=== PATIENT | female | born 1935 | race Two or more races ===

== ENCOUNTER 2023-03-04 17:37 | Inpatient (IN) | payer MEDICARE, OTHER ==
[~2023-03-04] VITALS: Ht 154.9 cm; Wt 52.2 kg
[2023-03-04] MEDS ORDERED: ONDANSETRON HCL 4 MG/2 ML VIAL IV ONE (18:15)
[2023-03-04] MEDS ORDERED: MORPHINE SULFATE 4 MG/ML SYR/VIAL IV ONE (18:15)
[2023-03-04 18:53] LABS: Basophils # (auto) 0.1 10 ^3/uL (0-0.2); Eosinophils # (auto) 0.1 10 ^3/uL (0-0.8); Eosinophils % (auto) 1.3 % (0.0-7.0); Hemoglobin 14.8 g/dL (12.2-16.2); Lymphocytes # (auto) 1.4 10 ^3/uL (0.4-5.4); Lymphocytes % (auto) 26.9 % (10.0-50.0); Mean Corpuscular Hemoglobin 29.1 pg (28.0-32.0); Mean Corpuscular Hgb Conc. 33.7 g/dL (32.0-36.0); Mean Corpuscular Volume 86.5 fL (80.0-100.0); Monocytes # (auto) 0.6 10 ^3/uL (0-1.3); Monocytes % (auto) 11.5 % (0.0-12.0); Neutrophils # (auto) 3.2 10 ^3/uL (1.6-8.6); Neutrophils % (auto) 59.3 % (37.0-80.0); Nucleated Red Blood Cells % 0.1 %; Red Blood Cells 5.09 10^6/uL (4.0-5.20); Red Cell Distribution Width 14.5 % (11.8-14.3); White Blood Cell 5.3 10^3/uL (4.4-10.8)
[2023-03-04 19:09] LABS: INR 0.98 (0.9-1.15); Partial Thromboplastin Time 29.1 sec (24.6-33.4)
[2023-03-04] MEDS ORDERED: METOPROLOL TARTRATE 1MG/1ML-5ML VIAL IV ONE (19:15)
[2023-03-04] MEDS ORDERED: NITROGLYCERIN 0.4 MG SL TAB SL ONE (19:15)
[2023-03-04] MEDS ORDERED: HEPARIN SODIUM (PORCINE) 5000 UNITS/ML 1ML VIAL IV ONE (19:15)
[2023-03-04] MEDS ORDERED: HEPARIN DRIP/D5W 100UNITS/ML 250 ML IV SCH (19:15)
[2023-03-04 19:28] LABS: Albumin 4.1 g/dL (3.4-5.0); BUN/Creatinine Ratio 23.9 (10.0-20.0); Calcium 9.9 mg/dL (8.5-10.1); Magnesium 2.4 mg/dL (1.6-2.6); Potassium 3.8 mmol/L (3.5-5.1)
[2023-03-04 19:31] LABS: Bilirubin, Total 0.7 mg/dL (0.2-1.0); Total Protein 7.3 g/dL (6.4-8.2)
[2023-03-04] MEDS ORDERED: ACETAMINOPHEN 325 MG TAB PO PRN (20:45)
[2023-03-04] MEDS ORDERED: NITROGLYCERIN 0.4 MG SL TAB SL PRN (20:45)
[2023-03-04] MEDS ORDERED: MORPHINE SULFATE INJ 2 MG/ml SYRG IV PRN (20:45)
[2023-03-04] MEDS ORDERED: SODIUM CHLORIDE 0.9% 1,000 ML IV SCH (20:45)
[2023-03-04] MEDS ORDERED: ENAL2.5T7 PO (20:55)
[2023-03-04] MEDS ORDERED: [UNRECOGNIZED DRUG - CODE] PO (20:55)
[2023-03-04] MEDS ORDERED: METO25TA93 PO (20:55)
[2023-03-04] MEDS ORDERED: ATOR20TA50 PO (20:55)
[2023-03-04] MEDS ORDERED: METO25TA93 (20:55)
[2023-03-04] MEDS ORDERED: hydrALAZINE HCL 20 MG/ML VL IV PRN (21:00)
[2023-03-04 21:59] LABS: Cholesterol 138 mg/dL (< 200); Triglycerides 30 mg/dL (< 150)
[2023-03-04 22:02] LABS: HDL Cholesterol 82 mg/dL (40-59); LDL Cholesterol 50 mg/dL (< 100)
[2023-03-05 05:39] LABS: Basophils # (auto) 0 10 ^3/uL (0-0.2); Eosinophils # (auto) 0.1 10 ^3/uL (0-0.8); Hematocrit 36.5 % (36.0-46.0); Hemoglobin 12.5 g/dL (12.2-16.2); Lymphocytes % (auto) 30.2 % (10.0-50.0); Mean Corpuscular Hemoglobin 29.3 pg (28.0-32.0); Mean Corpuscular Hgb Conc. 34.3 g/dL (32.0-36.0); Mean Corpuscular Volume 85.4 fL (80.0-100.0); Monocytes # (auto) 0.5 10 ^3/uL (0-1.3); Monocytes % (auto) 14.1 % (0.0-12.0); Neutrophils # (auto) 1.8 10 ^3/uL (1.6-8.6); Neutrophils % (auto) 52.7 % (37.0-80.0); Nucleated Red Blood Cells % 0.1 %; Red Blood Cells 4.27 10^6/uL (4.0-5.20); Red Cell Distribution Width 14.9 % (11.8-14.3); White Blood Cell 3.3 10^3/uL (4.4-10.8)
[2023-03-05 05:56] LABS: Albumin 2.8 g/dL (3.4-5.0); Calcium 8.3 mg/dL (8.5-10.1); Potassium 3.7 mmol/L (3.5-5.1)
[2023-03-05 05:59] LABS: BUN/Creatinine Ratio 19.7 (10.0-20.0); Bilirubin, Total 0.7 mg/dL (0.2-1.0); Total Protein 5.3 g/dL (6.4-8.2)
[2023-03-05] MEDS ORDERED: NITROGLYCERIN 0.2MG/HR TOPICAL PATCH TD SCH (10:00)
[2023-03-05] MEDS: ENOXAPARIN SOD 40 MG/0.4 ML SYRINGE SC SCH (10:05)
[2023-03-05] MEDS: ATORVASTATIN 20 MG TAB PO SCH (10:06)
[2023-03-05] MEDS: ASPirin 81 mg TAB PO SCH (10:06)
[2023-03-05] MEDS: ENALAPRIL MALEATE 2.5 MG TAB PO SCH (10:07)
[2023-03-05] MEDS: METOPROLOL SUCCINATE XL 50 MG TAB PO SCH (10:07)
[2023-03-05] MEDS: REGADENOSON 0.4 MG/5 ML SYRG IV ONE ×4 (14:08→16:55)
[2023-03-05 16:30] VITALS: BP 143/55
[2023-03-05] MEDS ORDERED: ONDANSETRON HCL 4 MG/2 ML VIAL IV PRN (17:15)
[2023-03-05] MEDS ORDERED: ASPI81CH49 PO (17:48)
[2023-03-05 20:10] VITALS: BP 127/70
[2023-03-05 22:00] VITALS: BP 127/70
[2023-03-05 22:50] LABS: Urine Bacteria NONE SEEN /hpf (None Seen); Urine Blood Negative /uL (Negative); Urine Specific Gravity 1.013 (1.001-1.035); Urine WBC <1 /hpf (0 - 5)
[2023-03-06 04:58] VITALS: BP 129/60
[2023-03-06 06:14] LABS: BUN/Creatinine Ratio 20.2 (10.0-20.0); Calcium 8.8 mg/dL (8.5-10.1); Potassium 3.9 mmol/L (3.5-5.1)
[2023-03-06 08:00] VITALS: BP 152/61
[2023-03-06 08:30] VITALS: BP 152/61
[2023-03-06] MEDS: ASPirin 81 mg TAB PO SCH (09:12)
[2023-03-06] MEDS: ATORVASTATIN 20 MG TAB PO SCH (09:13)
[2023-03-06] MEDS: ENALAPRIL MALEATE 2.5 MG TAB PO SCH (09:14)
[2023-03-06] MEDS: METOPROLOL SUCCINATE XL 50 MG TAB PO SCH (09:14)
[2023-03-06] MEDS: ENOXAPARIN SOD 40 MG/0.4 ML SYRINGE SC SCH (09:15)
[2023-03-06 12:30] VITALS: BP 132/62
[2023-03-06 13:54] VITALS: BP 152/61
[2023-03-06 16:36] VITALS: BP 149/60
== END 2023-03-06 18:10 | disposition home or self-care (01) | DRG 281 ==
LOC: EDBD 17:37 → ER 17:37 → TELE 20:42 → TELE-WESTW 03-05 18:08
PROVIDERS: ADMIT Nurse Practitioner Family; ATTEND Internal Medicine
DX: I16.0 Hypertensive urgency (principal); I21.A1 Myocardial infarction type 2; I50.32 Chronic diastolic (congestive) heart failure; I25.10 Atherosclerotic heart disease of native coronary artery without angina pectoris; E78.5 Hyperlipidemia, unspecified; M79.7 Fibromyalgia; E11.9 Type 2 diabetes mellitus without complications; I11.0 Hypertensive heart disease with heart failure; D64.9 Anemia, unspecified; Z79.82 Long term (current) use of aspirin; Z91.041 Radiographic dye allergy status; Z88.5 Allergy status to narcotic agent; Z86.73 Personal history of transient ischemic attack (TIA), and cerebral infarction without residual deficits; Z90.710 Acquired absence of both cervix and uterus; Z87.442 Personal history of urinary calculi; I25.2 Old myocardial infarction; Z90.49 Acquired absence of other specified parts of digestive tract
CPT/HCPCS: 36415; 71045; 78452; 80048; 80053; 80061; 81001; 83735; 83880; 84443; 84484; 85025; 85379; 85610; 85730; 93005; 93017; 93306; 96361; 96372; 96374; 97163; G0378; J2405

== ENCOUNTER 2024-09-03 15:47 | Inpatient (IN) | payer OTHER, MEDICARE ==
[~2024-09-03] VITALS: Ht 154.9 cm; Wt 54.4 kg
[~2024-09-03 15:47] MED LIST: ASPI81CH49 PO; ATOR20TA50 PO; ENAL1TAB42 PO; METO25TA93; METO25TA93 PO; [UNRECOGNIZED DRUG - CODE] PO
--- NOTE | 2024-09-03 15:55 | ED.PDOC ---
History of Present Illness HPI Comments 88 y.o female with PMH of DM, HTN, hyperlipidemia, [place], CVA, and anemia, presents to the ED via EMS for an evaluation of increased confusion x 6 days. EMS reports patient resides at [facility], got a call by son today who states patient appears more confused to him. Patient is usually Alert and oriented x 4 but per EMS, on scene she was x 3 confused on the year. Patient has chronic history of constipation, rectal bleeding and abdominal pain. At this time patient states ongoing fevers with no specific time period. Time Seen by MD: 15:47 Reviewed Notes: Nurses Notes, Clinical Support Nurse Notes, Medications, Allergies Allergies: Coded Allergies: Atenolol (Verified Allergy, Unknown, 03/04/23) Codeine (Verified Allergy, Unknown, 03/04/23) Hydromorphone (Verified Allergy, Unknown, 03/04/23) Iodine (Verified Allergy, Unknown, 03/04/23) Morphine (Verified Allergy, Unknown, 03/04/23) Thioridazine (Verified Allergy, Unknown, 03/04/23) Home Meds Reported Medications Aspirin (Aspirin) 81 Mg Chw, 81 MG PO, TAB.CHEW 03/05/23 Metoprolol Succinate (Metoprolol Succinate Er) 25 Mg Tab, 25 03/04/23 Methenamine Mandelate (Methenamine Mandelate) 0.5 Gm Tab, TAB PO 03/04/23 Atorvastatin Calcium (ATORVASTATIN CALCIUM) 20 Mg Tab, 1 TAB PO DAILY 03/04/23 Metoprolol Succinate (Metoprolol Succinate Er) 25 Mg Tab, 1 TAB PO DAILY 03/04/23 Enalapril Maleate (Enalapril Maleate) 2.5 Mg Tab, 1 TAB PO DAILY 03/04/23 Information Source: Emergency Med Personnel Mode of Arrival: EMS Severity: Moderate Timing: Days (6) Duration: Since onset Past Medical History PAST MEDICAL HISTORY: Anemia, CVA, DM, High Lipids, HTN, Kidney Stones, [place] Surgical History: Appendectomy, Cholecystectomy, Hernia Repair, Hysterectomy 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 Family History Family History: Unknown Social History Smoker: Non-Smoker Alcohol: Denies ETOH Use Drugs: Denies Drug Use Lives In: Assisted Care Constitutional: reports: fever; denies: chills, diaphoresis, fatigue, malaise, sweats, weakness, others EENTM: denies: blurred vision, double vision, ear bleeding, ear discharge, ear drainage, ear pain, ear ringing, eye pain, eye redness, hearing loss, mouth pain, mouth swelling, nasal discharge, nose bleeding, nose congestion, nose pain, photophobia, tearing, throat pain, throat swelling, voice changes, others Respiratory: denies: cough, hemoptysis, orthopnea, SOB at rest, shortness of breath, SOB with excertion, stridor, wheezing, others Cardiovascular: denies: chest pain, dizzy spells, diaphoresis, Dyspnea on exertion, edema, irregular heart beat, left arm pain, lightheadedness, palpitations, PND, syncope, others Gastrointestinal: denies: abdomen distended, abdominal pain, blood streaked bowels, constipated, diarrhea, dysphagia, difficulty swallowing, hematemesis, melena, nausea, poor appetite, poor fluid intake, rectal bleeding, rectal pain, vomiting, others Genitourinary: denies: abnormal vagina bleeding, burning, dyspareunia, dysuria, flank pain, frequency, hematuria, incontinence, pain, , vagina discharge, urgency, others Neurological: denies: dizziness, fainting, headache, left sided numbness, left sided weakness, numbness, paresthesia, pre-existing deficit, right sided numbness, right sided weakness, seizure, speech problems, tingling, tremors, weakness, others Musculoskeletal: denies: back pain, gout, joint pain, joint swelling, muscle pain, muscle stiffness, neck pain, others Integumetry: denies: bruises, change in color, change in hair/nails, dryness, laceration, lesions, lumps, rash, wounds, others Allergic/Immunocompromised: denies: Difficulty Healing, Frequent Infections, Hives, Itching, others Hematologic/Lymphatic: denies: anemia, blood clots, easy bleeding, easy bruising, swollen glands, others Endocrine: denies: excessive hunger, excessive sweating, excessive thirst, excessive urination, flushing, intolerance to cold, intolerance to heat, unexplained weight gain, unexplained weight loss, others Psychiatric: denies: anxiety, bipolar disorder, depression, hopeless, panic disorder, schizophrenia, sleepless, suicidal, others All Other Systems: Reviewed and Negative Physical Exam General Appearance: Moderate Distress HEENT: Normal ENT Inspection, Pharynx Normal, TMs Normal Neck: Full Range of Motion, Non-Tender, Normal, Normal Inspection Respiratory: Chest Non-Tender, Lungs Clear, No Accessory Muscle Use, No Respiratory Distress, Normal Breath Sounds Cardiovascular: No Edema, No JVD, No Murmur, No Gallop, Normal Peripheral Pulses, Regular Rate/Rhythm Breast Exam: Deferred Gastrointestinal: No Organomegaly, Non Tender, No Pulsatile Mass, Normal Bowel Sounds, Soft Genitalia: Deferred Pelvic: Deferred Rectal: Deferred Extremities: No calf tenderness, Normal capillary refill, Normal inspection, Normal range of motion, Non-tender, No pedal edema Musculoskeletal : Apperance: Normal Neurologic: captain's assistant II-XII nml as Tested, Motor Weakness, No Sensory Deficits, Other (Confusion) Cerebellar Function: Unable to Test Reflexes: Normal Skin: Dry, Pallor, Warm Lymphatic: No Adenopathy Was a procedure done? Was a procedure done?: No EKG EKG : Pulse Rate (adult): 98 Cardiac Rhythm: NSR Block: RBBB Differential Dx Considerations may include: Sepsis, UTI, dehydration, electrolyte imbalance X-Ray, Labs, Meds, VS Vital Signs Date Time Temp Pulse Resp B/P (MAP) Pulse Ox O2 Delivery O2 Flow Rate FiO2 09/03/24 16:34 91 14 158/86 (110) 96 09/03/24 16:34 91 16 96 Room Air* 0 21 09/03/24 16:06 98.8 105 16 169/101 (123) 97 09/03/24 15:55 98 09/03/24 15:52 98 Lab Test 09/03/24 16:14 Range/Units White Blood Count 8.8 4.4-10.8 10^3/uL Red Blood Count 5.36 H 4.0-5.20 10^6/uL Hemoglobin 15.1 12.2-16.2 g/dL Hematocrit 44.6 36.0-46.0 % Mean Corpuscular Volume 83.2 80.0-100.0 fL Mean Corpuscular Hemoglobin 28.3 28.0-32.0 pg Mean Corpuscular Hemoglobin Concent 34.0 32.0-36.0 g/dL Red Cell Distribution Width 15.7 H 11.8-14.3 % Platelet Count 280 140-450 10^3/uL Mean Platelet Volume 8.0 6.9-10.8 fL Neutrophils (%) (Auto) 82.4 H 37.0-80.0 % Lymphocytes (%) (Auto) 11.4 10.0-50.0 % Monocytes (%) (Auto) 5.8 0.0-12.0 % Eosinophils (%) (Auto) 0.1 0.0-7.0 % Basophils (%) (Auto) 0.3 0.0-2.0 % Neutrophils # (Auto) 7.2 1.6-8.6 10 ^3/uL Lymphocytes # (Auto) 1.0 0.4-5.4 10 ^3/uL Monocytes # (Auto) 0.5 0-1.3 10 ^3/uL Eosinophils # (Auto) 0 0-0.8 10 ^3/uL Basophils # (Auto) 0 0-0.2 10 ^3/uL Nucleated Red Blood Cells 0.0 % Sodium Level 142 136-145 mmol/L Potassium Level 3.2 L 3.5-5.1 mmol/L Chloride Level 106 98-107 mmol/L Carbon Dioxide Level 25 20-31 mmol/L Anion Gap 11 5-15 Blood Urea Nitrogen 15 9-23 mg/dL Creatinine 0.86 0.550-1.02 mg/dL Glomerular Filtration Rate Calc 65 >90 mL/min BUN/Creatinine Ratio 17.4 10.0-20.0 Serum Glucose 145 H 74-106 mg/dL Calcium Level 10.4 8.7-10.4 mg/dL CT scan of the head is negative The CBC and chemistry panel are within normal limits The urine test is pending At this time, the patient is being admitted to the hospitalist The patient understands and agrees with the management The patient is being admitted at this time Images Reviewed?: Images reviewed and evaluated by me Time of 1ST Reevaluation: 15:51 Reevaluation 1ST: Unchanged Patient Education/Counseling: Diagnosis, Treatment, Prognosis Family Education/Counseling: No Family Present Departure 1 Departure Time of Disposition: 18:33 Impression: Primary Impression: Confusion Additional Impression: Generalized weakness Disposition: ADMITTED INPATIENT Admit to: [facility] Condition: Fair Critical Care Note Critical Care Time?: Yes (35 min-critical care time only) Stability Stability form required: Yes Unstable for transfer: Telemetry monitoring (Telemetry monitoring required), ED Physician Assesment (Clinical assesment) I personally scribed for ANA CRISTINA TAYLOR MD ([email or web address]) on 09/03/24 at 15:55. Electronically submitted by Radha Flanagan ([facility]). ANA CRISTINA TAYLOR MD Sep 03, 2024 15:55
[2024-09-03 16:26] LABS: Basophils # (auto) 0 10 ^3/uL (0-0.2); Basophils % (auto) 0.3 % (0.0-2.0); Eosinophils # (auto) 0 10 ^3/uL (0-0.8); Eosinophils % (auto) 0.1 % (0.0-7.0); Hematocrit 44.6 % (36.0-46.0); Hemoglobin 15.1 g/dL (12.2-16.2); Lymphocytes % (auto) 11.4 % (10.0-50.0); Mean Corpuscular Hemoglobin 28.3 pg (28.0-32.0); Mean Corpuscular Volume 83.2 fL (80.0-100.0); Monocytes # (auto) 0.5 10 ^3/uL (0-1.3); Monocytes % (auto) 5.8 % (0.0-12.0); Neutrophils # (auto) 7.2 10 ^3/uL (1.6-8.6); Neutrophils % (auto) 82.4 % (37.0-80.0); Platelet Count (auto) 280 10^3/uL (140-450); Red Blood Cells 5.36 10^6/uL (4.0-5.20); Red Cell Distribution Width 15.7 % (11.8-14.3); White Blood Cell 8.8 10^3/uL (4.4-10.8)
[2024-09-03 16:32] LABS: Chloride 106 mmol/L (98-107); Potassium 3.2 mmol/L (3.5-5.1); Sodium 142 mmol/L (136-145)
[2024-09-03 16:33] LABS: Anion Gap 11 (5-15); Calcium 10.4 mg/dL (8.7-10.4); Carbon Dioxide 25 mmol/L (20-31)
[2024-09-03 16:34] VITALS: PULSE 91; RESP 16; O2SAT 96
[2024-09-03 16:38] LABS: BUN/Creatinine Ratio 17.4 (10.0-20.0); Blood Urea Nitrogen 15 mg/dL (9-23); Glucose 145 mg/dL (74-106)
--- NOTE | 2024-09-03 16:48 | DVH ---
EXAM: CT HEAD WITHOUT CONTRAST INDICATION: aloc TECHNIQUE: CT of the head without intravenous contrast. Radiation dose : Head: CT Dose: CTDI volume is 51.73 mGy. Dose-length product is 916.11 mGy*cm The dose indicators for CT are the volume computed tomography (CT) dose index (CTDIvol) and the dose length product (DLP), and are measured in units of mGy and mGy-cm, respectively. These indicators are not patient dose, but values generated from the CT scanner acquisition factors. The report includes radiation exposure data for exposures received during this examination. COMPARISON: None FINDINGS: There is no evidence of acute intracranial hemorrhage, extra-axial collection, mass effect, midline s hift, herniation or hydrocephalus. There is moderate cerebral atrophy. The watts-white differentiation is intact. Patchy periventricular and subcortical white matter hypoattenuation is nonspecific but may be related to small vessel ischemic disease. The visualized paranasal sinuses and mastoid air cells are clear. The surrounding soft tissues and osseous structures are unremarkable. IMPRESSION: 1. No acute intracranial abnormality. Moderate cerebral atrophy. Radiation optimization: All CT scans at this facility use at least one of these dose optimization veronika hniques: Automated exposure control mA and/or kV adjustment per patient size (includes targeted exams where dose is matched to clinical indication) or iterative reconstruction. HS:Y
--- NOTE | 2024-09-03 18:04 | ECG ---
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
[2024-09-03 19:20] VITALS: PULSE 90; RESP 17; O2SAT 96
[2024-09-03 19:49] LABS: Urine Bacteria FEW /hpf (None Seen); Urine Blood Negative /uL (Negative); Urine Clarity Turbid (Clear); Urine Color Yellow (Yellow); Urine Mucus FEW (None Seen); Urine Protein, UAD TRACE (Negative); Urine Specific Gravity 1.021 (1.001-1.035); Urine Urobilinogen Normal (Negative); Urine WBC 18 /hpf (0 - 5); Urine pH 5.5 (5.0-9.0)
[2024-09-03] MEDS ORDERED: DOCUSATE SOD 100 MG CAP PO PRN (22:00)
[2024-09-03] MEDS: InsuLIN REG 1unit/0.01ml Soln (100units/ml) SC SCH (22:00)
[2024-09-03] MEDS ORDERED: DEXTROSE (50%) 50ML SYRG IV PRN (22:00)
[2024-09-03] MEDS ORDERED: HYDROcodone-ACET 5/325MG TAB PO PRN (22:00)
[2024-09-03] MEDS: ACCU-CHEK COMFORT CURVE STRIP VI SCH (22:15)
[2024-09-03] MEDS: cefTRIAXone 1GM/50ML D5W 50 ML IV ONE (22:17)
[2024-09-03] MEDS: SODIUM CHLOR 0.9% PF (SALINE LOCK) 10ML VIAL/SYR IV SCH (22:17)
[2024-09-03] MEDS: ATORVASTATIN 20 MG TAB PO SCH (22:17)
[2024-09-03] MEDS: POTASSIUM CHL 20 Meq TABLET PO ONE (22:17)
[2024-09-03] MEDS: METOPROLOL TARTRATE 25 MG TAB PO SCH (22:17)
--- NOTE | 2024-09-03 22:44 | DVHHP2 ---
History of Present Illness Reason for Visit: Generalized weakness History of Present Illness The patient is a 88-year-old female with multiple past medical history including CVA, DM, [place], and hypertension who presented to [facility] for evaluation of generalized weakness. As reported by EMS, patient confused for the past 6 days, getting worse today that prompted this visit. Patient currently resides at [facility]. Patient was seen and evaluated in the ED, laboratory data shows WBC 8.8, platelets 280, sodium 142, potassium 3.2, BUN 15, creatinine 0.86, glucose 145, calcium 10.4, blood pressure 136/78, heart rate 90, temperature 98.8 F, O2 saturation 96% room air. Urinalysis positive for urinary tract infection. Head CT showed no acute intracranial abnormality. Patient was IV antibiotic regimen Rocephin, please see medication orders section in the computer. On my assessment, patient denied chest pain, no headache, no dizziness, no loss of consciousness, no shortness of breath, no nausea,, no vomiting, no fever, no chills. Patient was admitted for further evaluation and medical management. Past Medical History Anemia, CVA, DM, High Lipids, HTN, Kidney Stones, [place] Past Surgical History Appendectomy, Cholecystectomy, Hernia Repair, Hysterectomy Family History Reviewed, noncontributory to the management of this case. Past Social History The patient lives at home, denies smoking, alcohol or illicit drugs abuse. Review of Systems Constitutional: Yes: Weakness; No: Fever, Chills, Sweats, Malaise, Other Eyes: No: Pain, Vision change, Conjunctivae inflammation, Eyelid inflammation, Other, Redness ENT: No: Ear pain, Ear discharge, Nose pain, Nose discharge, Nose congestion, Mouth pain, Mouth swelling, Throat pain, Throat swelling, Other Respiratory: No: Cough, Dry, Shortness of breath, SOB with excertion, Wheezing, Hemoptysis, Pleuritic Pain, Sputum, Wheezing, Other Cardiovascular: No: Chest Pain, Palpitations, Orthopnea, Paroxysmal Noc. D yspnea, Edema, Lt Headedness, Other Gastrointestinal: No: Nausea, Vomiting, Abdominal Pain, Diarrhea, Constipation, Melena, Hematochezia, Other Genitourinary: No Dysuria, No Frequency, No Incontinence, No Hematuria, No Retention, No Other Musculoskeletal: No: other, neck pain, shoulder pain, arm pain, back pain, hand pain, leg pain, foot pain Skin: No: Rash, Lesions, Jaundice, Bruising, Other Neurological: No: Weakness, Numbness, Incoordination, Change in speech, Confusion, Seizures, Other Allergies: Coded Allergies: Atenolol (Verified Allergy, Unknown, 03/04/23) Codeine (Verified Allergy, Unknown, 03/04/23) Hydromorphone (Verified Allergy, Unknown, 03/04/23) Iodine (Verified Allergy, Unknown, 03/04/23) Morphine (Verified Allergy, Unknown, 03/04/23) Thioridazine (Verified Allergy, Unknown, 03/04/23) Medications Current Medications Medications Dose Ordered Sig/Eli Route Start Time Stop Time Status Last Admin Dose Admin Aspirin 81 mg DAILY PO 09/04/24 10:00 Atorvastatin Calcium 10 mg HS PO 09/03/24 22:00 09/03/24 22:17 10 MG Metoprolol Tartrate 25 mg BID PO 09/03/24 22:00 09/03/24 22:17 25 MG Ceftriaxone Sodium 50 ml @ 100 mls/hr DAILY@2100 IV 09/04/24 21:00 Diagnostic Test (Pha) 1 strip ACHS 09/03/24 22:00 09/03/24 22:15 1 STRIP Insulin Human Regular ACHS SC 09/03/24 22:00 Dextrose 50 ml UD PRN IV 09/03/24 22:00 Sodium Chloride 10 ml Q8HR IV 09/03/24 22:00 09/03/24 22:17 10 ML Acetaminophen/ Hydrocodone Bitart 1 tab Q4HP PRN PO 09/03/24 22:00 UNV Ondansetron HCl 4 mg Q4HP PRN IV 09/03/24 22:00 Docusate Sodium 100 mg BIDPRN PRN PO 09/03/24 22:00 Acetaminophen 650 mg Q6HP PRN PO 09/03/24 22:00 Exam Vital Signs Vital Signs Date Time Temp Pulse Resp B/P (MAP) Pulse Ox O2 Delivery O2 Flow Rate FiO2 09/03/24 22:17 88 145/80 09/03/24 22:00 10 94 09/03/24 19:20 Room Air* 0 21 09/03/24 19:20 98.8 98.8 General Appearance: Alert, Oriented X3, Cooperative, No acute distress HEENT: Atraumatic, PERRLA, EOMI, Mucous membr. moist/pink Respiratory: Clear to auscultation, Normal air movement Cardiovascular: Regular rate, Normal S1, Normal S2, No murmurs Abdominal: Normal bowel sounds, Soft, No tenderness, No hepatospenomegaly, No masses Extremities: No clubbing, No cyanosis, No edema, Normal pulses, No tenderness/swelling Skin: No rashes, No breakdown, No significant lesion Neuro: Normal speech, Normal tone, Sensation intact, Cranial nerves 3-12 NL, Reflexes 2+, Other (Generalized weakness) Psych/Mental Status: Mental status NL, Mood NL Labs/Xrays Labs Test 09/03/24 22:13 09/03/24 19:00 09/03/24 16:14 Range/Units POC Glucose 130 H 70-106 mg/dl Urine Color Yellow Yellow Urine Clarity Turbid H Clear Urine pH 5.5 5.0-9.0 Urine Specific [place] 1.021 1.001-1.035 Urine Protein Trace H Negative Urine Ketones 1+ H Negative Urine Blood Negative Negative /uL Urine Nitrite Negative Negative Urine Bilirubin Negative Negative Urine Urobilinogen Normal Negative mg/dL Urine Leukocyte Esterase 2+ Negative /uL Urine RBC 11 0 - 4 /hpf Urine WBC 18 0 - 5 /hpf Urine Squamous Epithelial Cells Mod <5 /hpf Urine Bacteria Few H None Seen /hpf Urine Mucus Few None Seen Urine Glucose Normal Normal mg/dL White Blood Count 8.8 4.4-10.8 10^3/uL Red Blood Count 5.36 H 4.0-5.20 10^6/uL Hemoglobin 15.1 12.2-16.2 g/dL Hematocrit 44.6 36.0-46.0 % Mean Corpuscular Volume 83.2 80.0-100.0 fL Mean Corpuscular Hemoglobin 28.3 28.0-32.0 pg Mean Corpuscular Hemoglobin Concent 34.0 32.0-36.0 g/dL Red Cell Distribution Width 15.7 H 11.8-14.3 % Platelet Count 280 140-450 10^3/uL Mean Platelet Volume 8.0 6.9-10.8 fL Neutrophils (%) (Auto) 82.4 H 37.0-80.0 % Lymphocytes (%) (Auto) 11.4 10.0-50.0 % Monocytes (%) (Auto) 5.8 0.0-12.0 % Eosinophils (%) (Auto) 0.1 0.0-7.0 % Basophils (%) (Auto) 0.3 0.0-2.0 % Neutrophils # (Auto) 7.2 1.6-8.6 10 ^3/uL Lymphocytes # (Auto) 1.0 0.4-5.4 10 ^3/uL Monocytes # (Auto) 0.5 0-1.3 10 ^3/uL Eosinophils # (Auto) 0 0-0.8 10 ^3/uL Basophils # (Auto) 0 0-0.2 10 ^3/uL Nucleated Red Blood Cells 0.0 % Sodium Level 142 136-145 mmol/L Potassium Level 3.2 L 3.5-5.1 mmol/L Chloride Level 106 98-107 mmol/L Carbon Dioxide Level 25 20-31 mmol/L Anion Gap 11 5-15 Blood Urea Nitrogen 15 9-23 mg/dL Creatinine 0.86 0.550-1.02 mg/dL Glomerular Filtration Rate Calc 65 >90 mL/min BUN/Creatinine Ratio 17.4 10.0-20.0 Serum Glucose 145 H 74-106 mg/dL Calcium Level 10.4 8.7-10.4 mg/dL PATIENT: ERICKA WHITE ACCT: [id number] UNIT: [id number] : 1935 LOC: ER ROOM / BED: / AGE / SEX: 88 / F ADM STATUS: REG ER SERVICE [id number] ORDERING PHYSICIAN: ANA CRISTINA TAYLOR MD PROCEDURE(s): HWOCT - HEAD WITHOUT CONTRAST REASON: aloc ORDER NUMBER(s): [id number], ACCESSION NUMBER(s): [id number] EXAM: CT HEAD WITHOUT CONTRAST INDICATION: aloc TECHNIQUE: CT of the head without intravenous contrast. Radiation dose : Head: CT Dose: CTDI volume is 51.73 mGy. Dose-length product is 916.11 mGy*cm The dose indicators for CT are the volume computed tomography (CT) dose index (CTDIvol) and the dose length product (DLP), and are measured in units of mGy and mGy-cm, respectively. These indicators are not patient dose, but values generated from the CT scanner acquisition factors. The report includes radiation exposure data for exposures received during this examination. COMPARISON: None FINDINGS: There is no evidence of acute intracranial hemorrhage, extra-axial collection, mass effect, midline shift, herniation or hydrocephalus. There is moderate cerebral atrophy. The watts-white differentiation is intact. Patchy periventricular and subcortical white matter hypoattenuation is nonspecific but may be related to small vessel ischemic disease. The visualized paranasal sinuses and mastoid air cells are clear. The surrounding soft tissues and osseous structures are unremarkable. IMPRESSION: 1. No acute intracranial abnormality. Moderate cerebral atrophy. Assessment/Plan Assessment/Plan Confusion state Hypokalemia Urinary tract infection Generalized weakness Plan 1. Admit to telemetry unit 2. Breathing treatment 3. Pain control management 4. IV antibiotic management 5. Management of fluids and electrolytes 6. Consultation for hospitalist 7. Diagnostic test head CT 8. DVT prophylaxis-on aspirin 9. Repeat labs CBC, CMP in a.m. 10. Home medication reviewed and reconciled 11. Continue with current medical management 12. Treatment plan discussed with patient and RN. Patient verbalized understanding. Plan discussed with: Patient, Other (RN) My Orders Orders - JT TOLEDO DNP Procedure Category Date Status Time Aspirin Tablet PHA 09/04/24 In Process 10:00 Atorvastatin (Lipitor) PHA 09/03/24 In Process 22:00 Metoprolol Tartrate PHA 09/03/24 In Process Tablet (Lopressor Ta 22:00 Urine Bacterial EASTON 09/03/24 In Process Culture 21:49 Ceftriaxone 1gm/50ml PHA 09/04/24 In Process D5w (Rocephin) 21:00 Consistent DIET 09/04/24 Transmitted Carb(Ccho)Diabetes Breakfast Glucose Blood PHA 09/03/24 In Process (Accu-Chek Comfort 22:00 Insulin R (Human) PHA 09/03/24 In Process (Insulin R) 22:00 Dextrose 50% Syringe PHA 09/03/24 In Process 22:00 Allergies KAMALA 09/03/24 In Process 21:49 Code Status CODE 09/03/24 Transmitted 21:49 Sodium Chloride Lock PHA 09/03/24 In Process (Saline Lock Ns) 22:00 Oxygen Per Hour RT 09/03/24 Transmitted 21:49 Hydrocodone-Acet PHA 09/03/24 Pending 5/325mg Tab ([place] 22:00 Ondansetron Hcl PHA 09/03/24 In Process (Zofran) 22:00 Docusate Sodium PHA 09/03/24 In Process Capsule (Colace 22:00 Fall Risk Precautions KAMALA 09/03/[address] 21:49 Complete Blood Count LAB 09/04/24 Verified 04:00 Comprehensive LAB 09/04/24 Verified Metabolic Panel 04:00 Condition: Serious KAMALA 09/03/24 In Process 21:49 Acetaminophen Tablet PHA 09/03/24 In Process (Tylenol Tablet) 22:00 Problem List: (1) Confusion state (2) Urinary tract infection (3) Hypokalemia (4) Generalized weakness Date of Service: Sep 03, 2024 Billing Provider: JT TOLEDO DNP Common Visit Codes: [id number] INP/OBS CARE (HIGH) JT TOLEDO DNP Sep 03, 2024 22:44
[2024-09-03] MEDS ORDERED: NITROGLYCERIN 0.4 MG SL TAB SL PRN (22:45)
[2024-09-04] VITALS (8 sets, daily range): BP systolic 146–161; BP diastolic 59–77; PULSE 64–96; RESP 16–20; TEMP 98.2–98.4; O2SAT 93–96
[2024-09-04] MEDS: ONDANSETRON HCL 4 MG/2 ML VIAL IV PRN (01:26)
[2024-09-04 07:10] LABS: Basophils # (auto) 0 10 ^3/uL (0-0.2); Basophils % (auto) 0.2 % (0.0-2.0); Eosinophils # (auto) 0 10 ^3/uL (0-0.8); Hematocrit 42.1 % (36.0-46.0); Hemoglobin 14.2 g/dL (12.2-16.2); Lymphocytes # (auto) 1.1 10 ^3/uL (0.4-5.4); Lymphocytes % (auto) 13.6 % (10.0-50.0); Mean Corpuscular Hemoglobin 28.4 pg (28.0-32.0); Mean Corpuscular Hgb Conc. 33.7 g/dL (32.0-36.0); Mean Corpuscular Volume 84.4 fL (80.0-100.0); Monocytes # (auto) 0.5 10 ^3/uL (0-1.3); Monocytes % (auto) 6.9 % (0.0-12.0); Neutrophils # (auto) 6.1 10 ^3/uL (1.6-8.6); Neutrophils % (auto) 79.3 % (37.0-80.0); Platelet Count (auto) 255 10^3/uL (140-450); Red Cell Distribution Width 15.5 % (11.8-14.3); White Blood Cell 7.8 10^3/uL (4.4-10.8)
[2024-09-04 07:32] LABS: Alanine Aminotransferase 38 U/L (7-40); Albumin 4.2 g/dL (3.2-4.8); Alkaline Phosphatase 168 U/L (46-116); Anion Gap 10 (5-15); Aspartate Aminotransferase 24 U/L (13-40); BUN/Creatinine Ratio 15.9 (10.0-20.0); Blood Urea Nitrogen 11 mg/dL (9-23); Carbon Dioxide 25 mmol/L (20-31); Chloride 107 mmol/L (98-107); Glucose 129 mg/dL (74-106); Potassium 3.4 mmol/L (3.5-5.1); Sodium 142 mmol/L (136-145)
[2024-09-04 07:33] LABS: Bilirubin, Total 0.5 mg/dL (0.2-1.0); Total Protein 6.8 g/dL (5.7-8.2)
[2024-09-04] MEDS: cefTRIAXone 1GM/50ML D5W 50 ML IV SCH (09:28)
[2024-09-04] MEDS: ASPirin 81 mg TAB PO SCH (09:30)
--- NOTE | 2024-09-04 15:41 | DVHPN2 ---
Subjective 88-year-old female who was admitted for generalized weakness She was found to have UTI and hypokalemia Changes from previous H/P or p: Changes Eyes: No Pain, No Vision change, No Conjunctivae inflammation, No Eyelid inflammation, No Other, No Redness ENT: No Ear pain, No Ear discharge, No Nose pain, No Nose discharge, No Nose congestion, No Mouth pain, No Mouth swelling, No Throat pain, No Throat swelling, No Other Cardiovascular: No Chest Pain, No Palpitations, No Orthopnea, No Paroxysmal Noc. Dyspnea, No Edema, No Lt Headedness, No Other Respiratory: No Cough, No Dry, No Shortness of breath, No SOB with excertion, No Wheezing, No Hemoptysis, No Pleuritic Pain, No Sputum, No Other Gastrointestinal: No Nausea, No Vomiting, No Abdominal Pain, No Diarrhea, No Constipation, No Melena, No Hematochezia, No Other Genitourinary: No Dysuria, No Frequency, No Incontinence, No Hematuria, No Retention, No Other Musculoskeletal: No other, No neck pain, No shoulder pain, No arm pain, No back pain, No hand pain, No leg pain, No foot pain Skin: No Rash, No Lesions, No Jaundice, No Bruising, No Other Objective Vitals Vital Signs Date Time Temp Pulse Resp B/P (MAP) Pulse Ox O2 Delivery O2 Flow Rate FiO2 09/04/24 12:52 98.4 64 20 149/69 (95) 94 98.4 09/04/24 08:00 Room Air* 0 21 Intake/Output Intake and Output 09/04/24 07:00 Intake Total 250 ml Output Total 300 ml Balance -50 ml Intake Oral 200 ml IV Total 50 ml Output Urine Total 300 ml # Voids 1 # Bowel Movements 2 General Appearance: Alert, Oriented X3, Cooperative Lungs: Clear to auscultation, Normal air movement Cardiovascular: Regular rate, Normal S1 Abdomen: Normal bowel sounds, Soft, No tenderness Extremities: No edema Medications Current Medications Medications Dose Ordered Sig/Eli Route Start Time Stop Time Status Last Admin Dose Admin Aspirin 81 mg DAILY PO 09/04/24 10:00 09/04/24 09:30 81 MG Atorvastatin Calcium 10 mg HS PO 09/03/24 22:00 09/03/24 22:17 10 MG Metoprolol Tartrate 25 mg BID PO 09/03/24 22:00 09/04/24 09:29 25 MG Diagnostic Test (Pha) 1 strip ACHS 09/03/24 22:00 09/04/24 06:24 1 STRIP Insulin Human Regular ACHS SC 09/03/24 22:00 Dextrose 50 ml UD PRN IV 09/03/24 22:00 Sodium Chloride 10 ml Q8HR IV 09/03/24 22:00 09/04/24 14:50 10 ML Acetaminophen/ Hydrocodone Bitart 1 tab Q4HP PRN PO 09/03/24 22:00 Hold Ondansetron HCl 4 mg Q4HP PRN IV 09/03/24 22:00 09/04/24 01:26 4 MG Docusate Sodium 100 mg BIDPRN PRN PO 09/03/24 22:00 Acetaminophen 650 mg Q6HP PRN PO 09/03/24 22:00 Nitroglycerin 0.4 mg Q5MINP PRN SL 09/03/24 22:45 Ceftriaxone Sodium 50 ml @ 100 mls/hr DAILY@1000 IV 09/04/24 10:00 09/04/24 09:28 100 MLS/HR Laboratory Results Laboratory Tests 09/04/24 06:46 Chemistry Test 09/03/24 16:14 09/04/24 06:46 Calcium Level 10.4 mg/dL (8.7-10.4) 10.0 mg/dL (8.7-10.4) Albumin 4.2 g/dL (3.2-4.8) Total Protein 6.8 g/dL (5.7-8.2) LFT Test 09/04/24 06:46 Alanine Aminotransferase (ALT) 38 U/L (7-40) Alkaline Phosphatase 168 U/L (46-116) H Aspartate Amino Transferase (AST) 24 U/L (13-40) Total Bilirubin 0.5 mg/dL (0.2-1.0) Urinalysis Test 09/03/24 19:00 Urine Color Yellow (Yellow) Urine Clarity Turbid (Clear) H Urine pH 5.5 (5.0-9.0) Urine Specific [place] 1.021 (1.001-1.035) Urine Protein Trace (Negative) H Urine Ketones 1+ (Negative) H Urine Blood Negative /uL (Negative) Urine Nitrite Negative (Negative) Urine Bilirubin Negative (Negative) Urine Urobilinogen Normal mg/dL (Negative) Urine Leukocyte Esterase 2+ /uL (Negative) Urine RBC 11 /hpf (0 - 4) Urine WBC 18 /hpf (0 - 5) Urine Squamous Epithelial Cells Mod /hpf (<5) Urine Bacteria Few /hpf (None Seen) H Urine Mucus Few (None Seen) Urine Glucose Normal mg/dL (Normal) Assessment/Plan Assessment/Plan UTI Hypokalemia Generalized weakness History of CVA Type 2 diabetes Dyslipidemia Hypertension Plan IV Rocephin Replace potassium Physical therapy Full code Advance directives discussed for 20 minutes Plan discussed with: Patient Date of Service: Sep 04, 2024 Billing Provider: VIRGINIA WORLEY MD Common Visit Codes: [id number] INP/OBS CARE(HIGH) Secondary Visit Codes: [id number] CARE PLAN 30 MINUTES VIRGINIA WORLEY MD Sep 04, 2024 15:41
[2024-09-04] MEDS: POTASSIUM CHL 20 Meq TABLET PO ONE (17:18)
[2024-09-04] MEDS ORDERED: cefTRIAXone 1GM/50ML D5W 50 ML IV SCH (21:00)
[2024-09-05 01:32] VITALS: BP 156/84; PULSE 66; RESP 20; TEMP 98.2; O2SAT 97
[2024-09-05 05:00] VITALS: BP 155/66; PULSE 93; RESP 18; TEMP 98.5; O2SAT 94
[2024-09-05 06:42] LABS: Anion Gap 8 (5-15); Calcium 10.4 mg/dL (8.7-10.4); Carbon Dioxide 25 mmol/L (20-31); Chloride 107 mmol/L (98-107); Potassium 3.2 mmol/L (3.5-5.1); Sodium 140 mmol/L (136-145)
[2024-09-05 06:47] LABS: Glucose 101 mg/dL (74-106)
[2024-09-05 06:48] LABS: BUN/Creatinine Ratio 10.6 (10.0-20.0); Blood Urea Nitrogen 7 mg/dL (9-23)
[2024-09-05 06:49] LABS: Magnesium 1.9 mg/dL (1.6-2.6)
[2024-09-05 09:00] VITALS: BP 162/80; PULSE 62; RESP 20; TEMP 98.4; O2SAT 95
--- NOTE | 2024-09-05 11:15 | DVHPN2 ---
Subjective No new complaints Complains of weakness Changes from previous H/P or p: Changes Eyes: No Pain, No Vision change, No Conjunctivae inflammation, No Eyelid inflammation, No Other, No Redness ENT: No Ear pain, No Ear discharge, No Nose pain, No Nose discharge, No Nose congestion, No Mouth pain, No Mouth swelling, No Throat pain, No Throat swelling, No Other Cardiovascular: No Chest Pain, No Palpitations, No Orthopnea, No Paroxysmal Noc. Dyspnea, No Edema, No Lt Headedness, No Other Respiratory: No Cough, No Dry, No Shortness of breath, No SOB with excertion, No Wheezing, No Hemoptysis, No Pleuritic Pain, No Sputum, No Other Gastrointestinal: No Nausea, No Vomiting, No Abdominal Pain, No Diarrhea, No Constipation, No Melena, No Hematochezia, No Other Genitourinary: No Dysuria, No Frequency, No Incontinence, No Hematuria, No Retention, No Other Musculoskeletal: No other, No neck pain, No shoulder pain, No arm pain, No back pain, No hand pain, No leg pain, No foot pain Skin: No Rash, No Lesions, No Jaundice, No Bruising, No Other Objective Vitals Vital Signs Date Time Temp Pulse Resp B/P (MAP) Pulse Ox O2 Delivery O2 Flow Rate FiO2 09/05/24 09:00 98.4 62 20 162/80 (107) 95 98.4 09/05/24 08:05 Room Air* 0 21 Intake/Output Intake and Output 09/05/24 07:00 Intake Total 745 ml Balance 745 ml Intake Oral 745 ml # Voids 3 General Appearance: Alert, Oriented X3, Cooperative Lungs: Clear to auscultation, Normal air movement Cardiovascular: Regular rate, Normal S1 Abdomen: Normal bowel sounds, Soft, No tenderness Extremities: No edema Medications Current Medications Medications Dose Ordered Sig/Eli Route Start Time Stop Time Status Last Admin Dose Admin Aspirin 81 mg DAILY PO 09/04/24 10:00 09/05/24 08:40 81 MG Atorvastatin Calcium 10 mg HS PO 09/03/24 22:00 09/04/24 22:09 10 MG Metoprolol Tartrate 25 mg BID PO 09/03/24 22:00 09/05/24 08:40 25 MG Diagnostic Test (Pha) 1 strip ACHS 09/03/24 22:00 09/05/24 06:06 1 STRIP Insulin Human Regular ACHS SC 09/03/24 22:00 Dextrose 50 ml UD PRN IV 09/03/24 22:00 Sodium Chloride 10 ml Q8HR IV 09/03/24 22:00 09/05/24 06:06 10 ML Acetaminophen/ Hydrocodone Bitart 1 tab Q4HP PRN PO 09/03/24 22:00 Hold Ondansetron HCl 4 mg Q4HP PRN IV 09/03/24 22:00 09/04/24 01:26 4 MG Docusate Sodium 100 mg BIDPRN PRN PO 09/03/24 22:00 Acetaminophen 650 mg Q6HP PRN PO 09/03/24 22:00 Nitroglycerin 0.4 mg Q5MINP PRN SL 09/03/24 22:45 Ceftriaxone Sodium 50 ml @ 100 mls/hr DAILY@1000 IV 09/04/24 10:00 09/05/24 08:41 100 MLS/HR Laboratory Results Laboratory Tests 09/04/24 06:46 09/05/24 05:18 Chemistry Test 09/05/24 05:18 Calcium Level 10.4 mg/dL (8.7-10.4) Magnesium Level 1.9 mg/dL (1.6-2.6) Urinalysis Test 09/03/24 19:00 Urine Color Yellow (Yellow) Urine Clarity Turbid (Clear) H Urine pH 5.5 (5.0-9.0) Urine Specific [place] 1.021 (1.001-1.035) Urine Protein Trace (Negative) H Urine Ketones 1+ (Negative) H Urine Blood Negative /uL (Negative) Urine Nitrite Negative (Negative) Urine Bilirubin Negative (Negative) Urine Urobilinogen Normal mg/dL (Negative) Urine Leukocyte Esterase 2+ /uL (Negative) Urine RBC 11 /hpf (0 - 4) Urine WBC 18 /hpf (0 - 5) Urine Squamous Epithelial Cells Mod /hpf (<5) Urine Bacteria Few /hpf (None Seen) H Urine Mucus Few (None Seen) Urine Glucose Normal mg/dL (Normal) Microbiology Microbiology Date/Time Source Procedure Growth Status 09/03/24 19:00 Voided Urine Urine Culture - Preliminary Resulted Assessment/Plan Assessment/Plan UTI Hypokalemia Generalized weakness History of CVA Type 2 diabetes Dyslipidemia Hypertension Plan 09/04/2024: IV Rocephin Replace potassium Physical therapy Full code Advance directives discussed for 20 minutes 09/05/2024: UTI: Rocephin Hypokalemia: Replace Physical therapy Aspirin Lipitor Metoprolol Discharge planning for tomorrow Plan discussed with: Patient My Orders Orders - VIRGINIA WORLEY MD Procedure Category Date Status Time Pt Request For Service PT 09/04/24 Logged 15:39 Date of Service: Sep 05, 2024 Billing Provider: VIRGINIA WORLEY MD Common Visit Codes: [id number] INP/OBS CARE(HIGH) VIRGINIA WORLEY MD Sep 05, 2024 11:15
[2024-09-05] MEDS: POTASSIUM CHL 20 Meq TABLET PO ONE (11:45)
[2024-09-05 13:29] VITALS: BP 161/71; PULSE 60; RESP 20; TEMP 98.7; O2SAT 95
[2024-09-05 17:22] VITALS: BP 167/80; PULSE 69; RESP 20; TEMP 98.4; O2SAT 94
[2024-09-05] MEDS: ACETAMINOPHEN 325 MG TAB PO PRN (18:02)
[2024-09-05 21:00] VITALS: BP 149/76; PULSE 72; RESP 16; TEMP 97.9; O2SAT 94
[2024-09-06 01:00] VITALS: BP 158/76; PULSE 65; RESP 16; TEMP 97.5; O2SAT 97
[2024-09-06 05:47] VITALS: BP 155/78; PULSE 64; RESP 18
[2024-09-06 09:00] VITALS: BP 126/75; PULSE 86; RESP 17; TEMP 98.3; O2SAT 92
--- NOTE | 2024-09-06 11:01 | DVHDS2 ---
Discharge Summary Date of Admission Sep 03, 2024 at 22:43 Date of Discharge: Sep 06, 2024 Labs/Diagnostic Data: Laboratory Results Test 09/05/24 16:44 09/05/24 05:18 09/04/24 06:46 09/03/24 19:00 POC Glucose 106 mg/dl (70-106) Sodium Level 140 mmol/L (136-145) Potassium Level 3.2 mmol/L (3.5-5.1) Chloride Level 107 mmol/L (98-107) Carbon Dioxide Level 25 mmol/L (20-31) Anion Gap 8 (5-15) Blood Urea Nitrogen 7 mg/dL (9-23) Creatinine 0.66 mg/dL (0.550-1.02) Glomerular Filtration Rate Calc 85 mL/min (>90) BUN/Creatinine Ratio 10.6 (10.0-20.0) Serum Glucose 101 mg/dL (74-106) Calcium Level 10.4 mg/dL (8.7-10.4) Magnesium Level 1.9 mg/dL (1.6-2.6) White Blood Count 7.8 10^3/uL (4.4-10.8) Red Blood Count 5.00 10^6/uL (4.0-5.20) Hemoglobin 14.2 g/dL (12.2-16.2) Hematocrit 42.1 % (36.0-46.0) Mean Corpuscular Volume 84.4 fL (80.0-100.0) Mean Corpuscular Hemoglobin 28.4 pg (28.0-32.0) Mean Corpuscular Hemoglobin Concent 33.7 g/dL (32.0-36.0) Red Cell Distribution Width 15.5 % (11.8-14.3) Platelet Count 255 10^3/uL (140-450) Mean Platelet Volume 7.9 fL (6.9-10.8) Neutrophils (%) (Auto) 79.3 % (37.0-80.0) Lymphocytes (%) (Auto) 13.6 % (10.0-50.0) Monocytes (%) (Auto) 6.9 % (0.0-12.0) Eosinophils (%) (Auto) 0.0 % (0.0-7.0) Basophils (%) (Auto) 0.2 % (0.0-2.0) Neutrophils # (Auto) 6.1 10 ^3/uL (1.6-8.6) Lymphocytes # (Auto) 1.1 10 ^3/uL (0.4-5.4) Monocytes # (Auto) 0.5 10 ^3/uL (0-1.3) Eosinophils # (Auto) 0 10 ^3/uL (0-0.8) Basophils # (Auto) 0 10 ^3/uL (0-0.2) Nucleated Red Blood Cells 0.0 % Total Bilirubin 0.5 mg/dL (0.2-1.0) Aspartate Amino Transferase (AST) 24 U/L (13-40) Alanine Aminotransferase (ALT) 38 U/L (7-40) Alkaline Phosphatase 168 U/L (46-116) Total Protein 6.8 g/dL (5.7-8.2) Albumin 4.2 g/dL (3.2-4.8) Urine Color Yellow (Yellow) Urine Clarity Turbid (Clear) Urine pH 5.5 (5.0-9.0) Urine Specific [place] 1.021 (1.001-1.035) Urine Protein Trace (Negative) Urine Ketones 1+ (Negative) Urine Blood Negative /uL (Negative) Urine Nitrite Negative (Negative) Urine Bilirubin Negative (Negative) Urine Urobilinogen Normal mg/dL (Negative) Urine Leukocyte Esterase 2+ /uL (Negative) Urine RBC 11 /hpf (0 - 4) Urine WBC 18 /hpf (0 - 5) Urine Squamous Epithelial Cells Mod /hpf (<5) Urine Bacteria Few /hpf (None Seen) Urine Mucus Few (None Seen) Urine Glucose Normal mg/dL (Normal) Other Laboratory Tests 09/05/24 05:18 09/04/24 06:46 Brief Hx & Hospital Course: Final diagnoses: UTI Hypokalemia Generalized weakness History of CVA Type 2 diabetes Dyslipidemia Hypertension 88-year-old female who was admitted for generalized weakness She was found to have UTI and hypokalemia Her kidney function was normal She had generalized weakness She is on hospice at home She lives at an assisted living facility as Alan in Physical therapy saw the patient here and she walked 25 ft Discharged home on hospice again with p.o. Keflex for 5 days Resume other home medications Discussed with her son over the phone, he is agreeable with the plan Condition at Discharge: Stable Final Diagnosis/Problems List UTI Hypokalemia Generalized weakness History of CVA Type 2 diabetes Dyslipidemia Hypertension Discharge Disposition: Hospice - Home SNF Discharge Will this Physician continue t: No Discharge Instruct/Medications Diet: Regular Activity: Light activity Follow Up/Referral: Hospice at home Medications: Keflex 500 mg t.i.d. for 5 days Resume home medications Discharge Statement: "Patient was advised to return to the ER or call 911 if any headaches, dizziness, shortness of breath, chest pain, abdominal pain, bleeding, fevers, or worsening of medical condition. Patient was counseled about treatment plan, medications, possible side effects, patientverbalized understanding. All questions were answered to the best of my ability. This discharge took greater then 30 minutes in planning, reviewing documentation, counseling the patient, and discussing with other team members." ASSESSMENT ASSESSMENT Assessment UTI Hypokalemia Generalized weakness History of CVA Type 2 diabetes Dyslipidemia Hypertension Date of Service: Sep 06, 2024 Billing Provider: VIRGINIA WORLEY MD Common Visit Codes: [id number] DISCH DAY >30min VIRGINIA WORLEY MD Sep 06, 2024 11:01
[2024-09-06] MEDS ORDERED: CEPH250S PO (11:02)
[2024-09-06 13:00] VITALS: BP 164/87; PULSE 60; RESP 17; TEMP 98; O2SAT 96
[2024-09-06 17:00] VITALS: BP 158/79; PULSE 72; RESP 17; TEMP 98; O2SAT 96
[2024-09-06 22:00] VITALS: BP 131/81; PULSE 69; RESP 17; TEMP 98.2; O2SAT 98
[2024-09-07 01:00] VITALS: BP 136/64; PULSE 67; RESP 17; TEMP 98.1; O2SAT 97
[2024-09-07 05:00] VITALS: BP 134/73; PULSE 72; RESP 17; TEMP 98.6; O2SAT 97
[2024-09-07 09:00] VITALS: BP 168/71; PULSE 64; RESP 16; RESP 95; TEMP 97.9; O2SAT 95
[2024-09-07 13:00] VITALS: BP 151/71; PULSE 60; RESP 18; TEMP 98.2; O2SAT 98
[2024-09-07 15:04] VITALS: BP 168/71; PULSE 64; TEMP 36.8
--- NOTE | 2024-09-07 15:37 | DVHPN2 ---
Subjective No new complaints Complains of weakness Changes from previous H/P or p: Changes Eyes: No Pain, No Vision change, No Conjunctivae inflammation, No Eyelid inflammation, No Other, No Redness ENT: No Ear pain, No Ear discharge, No Nose pain, No Nose discharge, No Nose congestion, No Mouth pain, No Mouth swelling, No Throat pain, No Throat swelling, No Other Cardiovascular: No Chest Pain, No Palpitations, No Orthopnea, No Paroxysmal Noc. Dyspnea, No Edema, No Lt Headedness, No Other Respiratory: No Cough, No Dry, No Shortness of breath, No SOB with excertion, No Wheezing, No Hemoptysis, No Pleuritic Pain, No Sputum, No Other Gastrointestinal: No Nausea, No Vomiting, No Abdominal Pain, No Diarrhea, No Constipation, No Melena, No Hematochezia, No Other Genitourinary: No Dysuria, No Frequency, No Incontinence, No Hematuria, No Retention, No Other Musculoskeletal: No other, No neck pain, No shoulder pain, No arm pain, No back pain, No hand pain, No leg pain, No foot pain Skin: No Rash, No Lesions, No Jaundice, No Bruising, No Other Objective Vitals Vital Signs Date Time Temp Pulse Resp B/P (MAP) Pulse Ox O2 Delivery O2 Flow Rate FiO2 09/07/24 15:04 36.8 64 09/07/24 13:00 18 151/71 (97) 98 09/07/24 08:00 Room Air* 0 21 Intake/Output Intake and Output 09/07/24 07:00 Intake Total 975 ml Balance 975 ml Intake Oral 925 ml IV Total 50 ml # Voids 5 General Appearance: Alert, Oriented X3, Cooperative Lungs: Clear to auscultation, Normal air movement Cardiovascular: Regular rate, Normal S1 Abdomen: Normal bowel sounds, Soft, No tenderness Extremities: No edema Medications Current Medications Medications Dose Ordered Sig/Eli Route Start Time Stop Time Status Last Admin Dose Admin Aspirin 81 mg DAILY PO 09/04/24 10:00 09/07/24 09:18 81 MG Atorvastatin Calcium 10 mg HS PO 09/03/24 22:00 09/06/24 20:58 10 MG Metoprolol Tartrate 25 mg BID PO 09/03/24 22:00 09/07/24 09:18 25 MG Diagnostic Test (Pha) 1 strip ACHS 09/03/24 22:00 09/06/24 17:25 1 STRIP Insulin Human Regular ACHS SC 09/03/24 22:00 09/06/24 17:25 2 UNITS Dextrose 50 ml UD PRN IV 09/03/24 22:00 Sodium Chloride 10 ml Q8HR IV 09/03/24 22:00 09/07/24 14:03 10 ML Acetaminophen/ Hydrocodone Bitart 1 tab Q4HP PRN PO 09/03/24 22:00 Hold Ondansetron HCl 4 mg Q4HP PRN IV 09/03/24 22:00 09/05/24 16:26 4 MG Docusate Sodium 100 mg BIDPRN PRN PO 09/03/24 22:00 Acetaminophen 650 mg Q6HP PRN PO 09/03/24 22:00 09/05/24 18:02 650 MG Nitroglycerin 0.4 mg Q5MINP PRN SL 09/03/24 22:45 Ceftriaxone Sodium 50 ml @ 100 mls/hr DAILY@1000 IV 09/04/24 10:00 09/07/24 09:18 100 MLS/HR Laboratory Results Laboratory Tests 09/04/24 06:46 09/05/24 05:18 Urinalysis Test 09/03/24 19:00 Urine Color Yellow (Yellow) Urine Clarity Turbid (Clear) H Urine pH 5.5 (5.0-9.0) Urine Specific [place] 1.021 (1.001-1.035) Urine Protein Trace (Negative) H Urine Ketones 1+ (Negative) H Urine Blood Negative /uL (Negative) Urine Nitrite Negative (Negative) Urine Bilirubin Negative (Negative) Urine Urobilinogen Normal mg/dL (Negative) Urine Leukocyte Esterase 2+ /uL (Negative) Urine RBC 11 /hpf (0 - 4) Urine WBC 18 /hpf (0 - 5) Urine Squamous Epithelial Cells Mod /hpf (<5) Urine Bacteria Few /hpf (None Seen) H Urine Mucus Few (None Seen) Urine Glucose Normal mg/dL (Normal) Microbiology Microbiology Date/Time Source Procedure Growth Status 09/05/24 03:25 Nose MRSA Screen - Final Complete 09/03/24 19:00 Voided Urine Urine Culture - Final Complete Assessment/Plan Assessment/Plan UTI Hypokalemia Generalized weakness History of CVA Type 2 diabetes Dyslipidemia Hypertension Plan 09/04/2024: IV Rocephin Replace potassium Physical therapy Full code Advance directives discussed for 20 minutes 09/05/2024: UTI: Rocephin Hypokalemia: Replace Physical therapy Aspirin Lipitor Metoprolol Discharge planning for tomorrow 09/07/2024: The patient was supposed to go home yesterday on hospice however apparently the hospice company declined to take her back and therefore her son elected to let her be discharged without hospice She needed a hospital bed so she was kept overnight and she is going home today She was discharged on cephalexin for 5 days and resume other home medications Plan discussed with: Patient, Son My Orders Orders - VIRGINIA WORLEY MD Procedure Category Date Status Time Discharge DISCHARGE 09/07/24 Transmitted 13:44 * Svp Chief Marketing Officer CONS 09/07/24 Transmitted Consult Date of Service: Sep 07, 2024 Billing Provider: VIRGINIA WORLEY MD Common Visit Codes: [id number] INP/OBS CARE(HIGH) VIRGINIA WORLEY MD Sep 07, 2024 15:37
[2024-09-07 16:35] VITALS: BP 118/90; PULSE 75; RESP 17; TEMP 97.9; O2SAT 96
== END 2024-09-07 16:21 | disposition home health service (06) | DRG 690 ==
LOC: EDBD 15:47 → ER 15:47 → TELE 22:43 → TELE-WESTW 23:05 → WEST WING 09-04 04:21
PROVIDERS: ADMIT Internal Medicine Geriatric Medicine; ATTEND Internal Medicine Geriatric Medicine
DX: N39.0 Urinary tract infection, site not specified (principal); E87.6 Hypokalemia; I10 Essential (primary) hypertension; E78.5 Hyperlipidemia, unspecified; E11.9 Type 2 diabetes mellitus without complications; K59.00 Constipation, unspecified; Z88.5 Allergy status to narcotic agent; Z86.73 Personal history of transient ischemic attack (TIA), and cerebral infarction without residual deficits; Z90.49 Acquired absence of other specified parts of digestive tract; Z90.710 Acquired absence of both cervix and uterus; Z87.442 Personal history of urinary calculi; Z79.4 Long term (current) use of insulin
CPT/HCPCS: 36415; 70450; 80048; 80053; 81001; 82962; 83735; 85025; 87081; 87086; 93005; 97110; 97116; 97163; 97530; 99291; G0378; J1815; J2405